=== PATIENT | female | born 1975 | race Caucasian/White ===

== ENCOUNTER 2018-08-18 09:46 | Emergency (ER) | payer MEDICAID, OTHER ==
[~2018-08-18] VITALS: Ht 157.5 cm; Wt 64.0 kg
[~2018-08-18 09:46] MED LIST: HYDR25TA6; OMEP20CA16 PO; RANI150T5 PO; TRAM50TA2 PO
[2018-08-18 09:59] VITALS: BP 154/97; PULSE 81; RESP 17; Ht 157.5 cm; Wt 64.0 kg
[2018-08-18] MEDS ORDERED: DIPHTH/TET/ACEL PERTUSS (ADULT) 0.5 ML VIAL IM* ONE (10:30)
--- NOTE | 2018-08-18 11:27 | ERD ---
ER Documentation Chief Complaint Chief Complaint Pt with lac to area beneath lower lip after GLF. HPI 42-year-old female presenting with laceration to lower right lip. Patient had a ground-level fall. She denies any head injury or loss of consciousness. She does not feel dizzy or vomiting. She denies any loose teeth. Does not recall her last tetanus shot. Denies medical problems. NKDA. Surgical history denies. Social history denies ROS All systems reviewed and are negative except as per history of present illness. Medications Home Meds Active Scripts Tramadol HCl (Tramadol HCl) 50 Mg Tab, 50 MG PO BID, #14 TAB Prov:VINNIE PIZANO PA-C 10/26/14 Omeprazole* (Omeprazole*) 20 Mg Capsule.dr, 20 MG PO DAILY, #20 CAP Prov:VINNIE PIZANO PA-C 10/26/14 Ranitidine Hcl* (Ranitidine Hcl*) 150 Mg Tablet, 150 MG PO HS, #20 TAB Prov:VINNIE PIZANO PA-C 10/26/14 Reported Medications Hydrochlorothiazide (Hydrochlorothiazide) 25 Mg Tablet 05/02/10 Allergies Allergies: Coded Allergies: No Known Allergy (Verified , 10/26/14) PMhx/Soc History of Surgery: Yes (TONSILLECTOMY,CHOLECYSTECTOMY) Anesthesia Reaction: No Hx Neurological Disorder: No Hx Respiratory Disorders: No Hx Cardiac Disorders: No Hx Psychiatric Problems: No Hx Miscellaneous Medical Probl: Yes (HTN) Hx Alcohol Use: Yes (OOC) Hx Substance Use: No Hx Tobacco Use: No Smoking Status: Never smoker FmHx Family History: No diabetes, No coronary disease, No other Physical Exam Vitals Vital Signs Date Temp Pulse Resp B/P (MAP) Pulse Ox O2 O2 Flow FiO2 Time Delivery Rate 08/18/18 98.6 81 17 154/97 98 09:59 (116) Physical Exam GENERAL: The patient is well-appearing, well-nourished, in no acute distress HEENT: Atraumatic. Conjunctivae are pink. Pupils equal, round, and reactive to light. There is no scleral icterus. Tympanic membranes clear bilaterally. Oropharynx clear. CHEST: Clear to auscultation bilaterally. There are no rales, wheezes or rhonchi. HEART: Regular rate and rhythm. No murmurs, clicks, rubs or gallops. NEUROLOGIC: Alert and oriented. Cranial nerves II through XII intact. Motor strength in all 4 extremities with 5 out of 5 strength. Sensation grossly intact. Normal speech and gait. SKIN: superficial 1 cm abrasion noted to right lower lip. No active bleeding. Results 24 hrs Current Medications Medications Dose Sig/Cecilia Start Time Status Last (Trade) Ordered Route PRN Stop Time Admin Dose Reason Admin Diphtheria/ 0.5 ml ONCE ONCE 08/18/18 DC 08/18/18 Tetanus/Acell IM* 10:30 08/18/18 10:50 Pertussis 10:31 (Adacel) Procedures/MDM ER course: tdap given in ED. Dermabond applied to right lower lip. DM: 42-year-old female presenting with abrasions to lip. I have low suspicion for neuro deficit. I have low suspicion for dental injury. Patient is discharged with strict ER precautions and told to follow-up with primary care within 1 to 2 days for close evaluation. Patient is told if symptoms change or worsen to return immediately to the ER. All questions answered at discharge Departure Diagnosis: Primary Impression: Abrasion Condition: Stable Patient Instructions: Abrasion Referrals: REPLACED BY [facility] YOU HAVE RECEIVED A MEDICAL SCREENING EXAM AND THE RESULTS INDICATE THAT YOU DO NOT HAVE A CONDITION THAT REQUIRES URGENT TREATMENT IN THE EMERGENCY DEPARTMENT. FURTHER EVALUATION AND TREATMENT OF YOUR CONDITION CAN WAIT UNTIL YOU ARE SEEN IN YOUR DOCTORS OFFICE WITHIN THE NEXT 1-2 DAYS. IT IS YOUR RESPONSIBILITY TO MAKE AN APPOINTMENT FOR FOLOW-UP CARE. IF YOU HAVE A PRIMARY DOCTOR --you should call your primary doctor and schedule an appointment IF YOU DO NOT HAVE A PRIMARY DOCTOR YOU CAN CALL OUR PHYSICIAN REFERRAL HOTLINE AT IF YOU CAN NOT AFFORD TO SEE A PHYSICIAN YOU CAN CHOSE FROM THE FOLLOWING REPLACED BY [facility] [address] [facility] [address] [facility] [address] [facility] [facility] [address] [facility]. [facility] [address] [facility]. [facility]. [address] [place] Additional Instructions: FOLLOW UP WITH YOUR PRIMARY CARE PHYSICIAN TOMORROW.Return to this facility if you are not improving as expected. LUIS ENRIQUE PALOMINO PA-C August 18, 2018 11:27
== END 2018-08-18 10:57 | disposition home or self-care (01) ==
LOC: FTE 09:46
DX: S00.511A Abrasion of lip, initial encounter (principal); I10 Essential (primary) hypertension; W18.39XA Other fall on same level, initial encounter; Y92.9 Unspecified place or not applicable; Z23 Encounter for immunization
CPT/HCPCS: 12011; 90471; 90715; Z7502

== ENCOUNTER 2018-10-31 06:54 | Day surgery (SDC) | payer OTHER ==
[~2018-10-31] VITALS: Ht 154.9 cm; Wt 76.6 kg
[2018-10-31 08:14] VITALS: Ht 154.9 cm; Wt 76.6 kg
[2018-10-31] MEDS ORDERED: LOSA50TA14 PO (08:20)
--- NOTE | 2018-10-31 08:53 | PREAC ---
Date/Time of Note Date/Time of Note DATE: 10/31/18 TIME: 08:51 Anesthesia Eval and Record Evaluation Time Pre-Procedure Interview DATE: 10/31/18 TIME: 08:51 Age 42 Sex female NPO: 8 hrs Preoperative diagnosis EPIGASTRIC PAIN, ANEMIA Planned procedure EGD, COLONOSCOPY Past Medical History Past Medical History: Includes Cardio: HTN GI: Obesity Surgery & Anesthesia Issues No known issue Meds Anticoagulation: No Beta Joanna within 24 hr: No Reason Beta Joanna not given: Pt. not on B-Joanna Active Scripts Omeprazole* (Omeprazole*) 20 Mg Capsule.dr, 20 MG PO DAILY, #20 CAP Prov:VINNIE PIZANO PA-C 10/26/14 Reported Medications Losartan Potassium* (Losartan Potassium*) 50 Mg Tablet, 50 MG PO DAILY, TAB 10/31/18 Discontinued Reported Medications Hydrochlorothiazide (Hydrochlorothiazide) 25 Mg Tablet 05/02/10 Discontinued Scripts Tramadol HCl (Tramadol HCl) 50 Mg Tab, 50 MG PO BID, #14 TAB Prov:VINNIE PIZANO PA-C 10/26/14 Ranitidine Hcl* (Ranitidine Hcl*) 150 Mg Tablet, 150 MG PO HS, #20 TAB Prov:VINNIE PIZANO PA-C 10/26/14 Meds reviewed: Yes Allergies Coded Allergies: No Known Allergy (Verified , 10/26/14) Allergies Reviewed: Yes Labs/Studies Labs Reviewed: Reviewed by anesthesiologist test: Negative Pre-procedure Exam Airway: Adequate mouth opening, Adequate thyromental dist Mallampati: Mallampati II Teeth: Normal Lung: Normal Heart: Normal ASA Physical Status ASA physical status: 2 Emergency: None Planned Anesthetic General/MAC: MAC Planned Pain Management Parenteral pain med Pre-operative Attestations Prior to commencing anesthesia and surgery, the patient was re-evaluated, there was verification of: *The patient's identity *The results of appropriate recent lab work and preoperative vital signs *The above evaluation not changing prior to induction *Anesthetic plan, risk benefits, alternative and complications discussed with patient/family; questions answered; patient/family understands, accepts and wishes to proceed. Patrick Kahn M.D. Oct 31, 2018 08:53
[2018-10-31] MEDS ORDERED: FENTAnyl 50 MCG/ML VIAL ONE (08:57)
[2018-10-31] MEDS ORDERED: LIDOCAINE 100 MG SYRINGE ONE (08:57)
[2018-10-31] MEDS ORDERED: PROPOFOL 200 MG INJ ONE (08:57)
[2018-10-31 09:30] VITALS: BP 140/80; PULSE 65; RESP 20
--- NOTE | 2018-10-31 09:33 | PAC ---
Date/Time of Note Date/Time of Note DATE: 10/31/18 TIME: 09:32 Post-Anesthesia Notes Post-Anesthesia Note Last documented vital signs HR 77 RR 14 T 98 BP 117/75 Activity: WNL Respiratory function: WNL Cardiovascular function: WNL Mental status: Baseline Pain reasonably controlled: Yes Hydration appropriate: Yes Nausea/Vomiting absent: Yes Patrick Kahn M.D. Oct 31, 2018 09:33
== END 2018-10-31 14:51 | disposition home or self-care (01) ==
LOC: GIL 06:54
PROVIDERS: ATTEND Internal Medicine Gastroenterology
DX: D50.9 Iron deficiency anemia, unspecified (principal); D12.5 Benign neoplasm of sigmoid colon; K62.1 Rectal polyp; D12.4 Benign neoplasm of descending colon; K29.70 Gastritis, unspecified, without bleeding; I10 Essential (primary) hypertension
CPT/HCPCS: 43239; 45385; 84703; 88305; 88312; J2001; J3010; Z7610